=== PATIENT | female | born 1985 | race Caucasian/White ===

== ENCOUNTER 2017-01-14 15:11 | Emergency (ER) | payer SELFPAY ==
[2017-01-14] MEDS ORDERED: NS 1,000 ML IV ONE (15:29)
[2017-01-14 15:30] VITALS: RESP 18; TEMP 98.2
[2017-01-14 16:12] LABS: ALANINE AMINOTRANSFERASE 13 IU/L (9-52); ALKALINE PHOSPHATASE 85 IU/L (38-126); ANION GAP 14 mEq/L (8-16); ASPARTATE AMINOTRANSFERASE 24 IU/L (14-46); BILIRUBIN,TOTAL 0.5 mg/dL (0.1-1.4); CALCIUM 8.8 mg/dL (8.5-10.4); CARBON DIOXIDE 20 mEq/l (22-31); CHLORIDE 107 mEq/L (97-110); CREATININE 0.5 mg/dL (0.6-1.0); GLOMERULAR FILTRATION RATE > 60; GLUCOSE 154 mg/dL (70-100); POTASSIUM 4.1 mEq/L (3.5-5.2); SODIUM 141 mEq/L (134-144); TOTAL PROTEIN 7.5 g/dL (6.3-8.2)
[2017-01-14] MEDS ORDERED: diphenhydrAMINE 25 MG CAP PO ONE (16:19)
[2017-01-14] MEDS ORDERED: ONDANSETRON DISINTEGRATING 4 MG TAB PO ONE (16:19)
[2017-01-14 16:21] LABS: % IMMATURE GRANULYOCYTES 0.2 % (0.0-1.1); ABSOLUTE IMMATURE GRANULOCYTES 0.01 10^3/uL (0.00-0.10); ADD DIFF? NO; ADD MORPH? NO; ADD SCAN? NO; ATYPICAL LYMPHOCYTE FLAG 20 (0-99); FRAGMENT RBC FLAG 0 (0-99); HEMATOCRIT 37.6 % (38.0-47.0); LEFT SHIFT FLG 0 (0-99); LIPEMIA HEMOLYSIS FLAG 80 (0-99); MEAN CELL HEMOGLOBIN 28.1 pg (27.9-34.1); MEAN CELL HEMOGLOBIN CONCENTR. 31.9 g/dL (32.4-36.7); MEAN CELL VOLUME 88.1 fL (81.5-99.8); MEAN PLATELET VOLUME 8.8 fL (8.7-11.7); PLATELET CLUMPS FLAG 0 (0-99); PLATELET COUNT 301 10^3/uL (150-400); RED BLOOD CELL COUNT 4.27 10^6/uL (4.18-5.33); RED CELL DISTRIBUTION WIDTH 14.9 % (11.5-15.2)
[2017-01-14] MEDS ORDERED: ONDANSETRON 4 MG/2 ML VIAL ONE (16:26)
--- NOTE | 2017-01-14 16:26 | EDPHY ---
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 She had associated pancreatitis that resolved after the stone was removed per her report with a lipase down to the 200s prior to discharge from hospital. She states that her medical records have not arrived here yet. She complains of upper belly pain since discharge from the hospital both achy and sharp in nature in the epigastrium with mild radiation to the right lower belly peak intensity 7/10, worsens with p.o. intake though she reports she is unclear diet. She reports that she has vomited today a total of 6 times. She states there is some bright red streaks in some of the emesis but no coffee-ground emesis. ROS: The patient stated that she had a fever this morning. She initially stated 99 then she reported that it was 101. No other constitutional symptoms HEENT: No URI symptoms or other complaints Pulmonary: No shortness of breath or cough cardiovascular: No lightheadedness. No lower extremity swelling GI: No coffee-ground emesis. No dark tarry stools. No diarrhea. : No complaints. Last menstrual. Normal timing no vaginal discharge. Integumentary: Patient has bruising over both arms and multiple injection sites that she states was from medical procedures. Neuro: No numbness tingling or focal weakness. 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 - Physical Exam Exam: Vital signs are normal General Appearance: Alert, no distress. Eyes: Pupils equal and round no pallor or injection. ENT, Mouth: Mucous membranes moist. Respiratory: There are no retractions, lungs are clear to auscultation. Cardiovascular: Regular rate and rhythm. Gastrointestinal: Normoactive, soft, mild epigastric tenderness with no guarding or rebound. No organomegaly. Multiple abdominal scars-surgical are present clean dry intact including midline vertical incision scar. No lower belly tenderness. Back: No CVA tenderness Neurological: GCS 15. Skin: Warm and dry, no rashes. The patient has multiple injection sites question medical verses track reece-left antecubital left forearm and right antecubital with bruising from tourniquets to bilateral biceps. She also has a scarred external jugular on the right Musculoskeletal: Neck is supple nontender. Extremities are symmetrical, full range of motion. Psychiatric: Mood and affect normal DIFFERENTIAL DIAGNOSIS: After history and physical exam differential diagnosis was considered for gastritis, pancreatitis, hepatitis, drug-seeking Constitutional: Initial Vital Signs Temperature (C) 36.8 C 01/14/17 15:26 Heart Rate 96 01/14/17 15:26 Respiratory Rate 18 01/14/17 15:26 Blood Pressure 129/88 H 01/14/17 15:26 O2 Sat (%) 97 01/14/17 15:26 O2 Delivery Mode Room Air Allergies/Adverse Reactions: dicyclomine [From Bentyl] Allergy (Verified 01/14/17 15:26) erythromycin base Allergy (Verified 01/14/17 15:26) haloperidol [From Haldol] Allergy (Verified 01/14/17 15:26) metoclopramide [From Reglan] Allergy (Verified 01/14/17 15:26) prochlorperazine [From Compazine] Allergy (Verified 01/14/17 15:26) promethazine [From Phenergan] Allergy (Verified 01/14/17 15:26) Home Medications: Medication Instructions Recorded Ondansetron Odt [Zofran Odt] 4 - 8 mg PO Q4PRN PRN #4 tab 01/14/17 Protonix 01/14/17 Medical Decision Making ED Course/Re-evaluation: Patient is a difficult IV stick but our tech established an IV in her leg after a few attempts elsewhere. Normal saline IV Zofran Benadryl IV A review of her labs reveals a normal CBC, normal electrolytes and creatinine as well as normal lipase. HCG is negative. It is surprising that the patient has a history of 6 vomiting episodes today with normal labs, creatinine and normal vital signs. She appears well hydrated clinically. Given her track reece verses multiple medical IV accesses am suspicious about potential drug-seeking in this patient. She however she does have a complicated history. Nevertheless, today's workup reveals no evidence of pancreatitis, hepatitis, acute abdomen. At 5:00 p.m. I checked the patient's symptoms and she reports ongoing nausea despite the Zofran and ongoing pain. I explained the good news that she has normal labs today and she did not feel this was good news because she has ongoing symptoms. I expressed a desire to proceed with further workup including rectal exam to rule out Hemoccult positive stool and if negative to give her anti-inflammatories for pain control and to consider imaging to further workup her ongoing symptoms. The patient complained that she did not feel that we were adequately addressing her problem "all you have done is given me a little Zofran and Benadryl and now you want to give me anti-inflammatories", she complained. When asked if she was disappointed that she had not received opiates she claimed that she was not seeking opiates but also stated abruptly that she wanted to leave and did not want any further workup. She understands the risk of missing GI bleed and other potential pathology without rectal exam and imaging. She understands this risk and accepts it but does not want to sign an AMA form. She will proceed home with a Zofran script and encouraged her to continue her antacid use Maalox as needed for when I suspect is gastritis. - Data Points Laboratory Results: Laboratory Results 01/14/17 16:15 01/14/17 15:40 01/14/17 01/14/17 01/14/17 16:15 15:40 15:40 WBC 4.88 10^3/uL 10^3/uL (3.80-9.50) RBC 4.27 10^6/uL 10^6/uL (4.18-5.33) Hgb 12.0 g/dL L g/dL (12.6-16.3) Hct 37.6 % L % (38.0-47.0) MCV 88.1 fL fL (81.5-99.8) MCH 28.1 pg pg (27.9-34.1) MCHC 31.9 g/dL L g/dL (32.4-36.7) RDW 14.9 % % (11.5-15.2) Plt Count 301 10^3/uL 10^3/uL (150-400) MPV 8.8 fL fL (8.7-11.7) Neut % (Auto) 60.6 % % (39.3-74.2) Lymph % (Auto) 31.4 % % (15.0-45.0) Lamb % (Auto) 4.5 % % (4.5-13.0) Eos % (Auto) 2.9 % % (0.6-7.6) Baso % (Auto) 0.4 % % (0.3-1.7) Nucleat RBC Rel Count 0.0 % % (0.0-0.2) Absolute Neuts (auto) 2.96 10^3/uL 10^3/uL (1.70-6.50) Absolute Lymphs (auto) 1.53 10^3/uL 10^3/uL (1.00-3.00) Absolute Monos (auto) 0.22 10^3/uL L 10^3/uL (0.30-0.80) Absolute Eos (auto) 0.14 10^3/uL 10^3/uL (0.03-0.40) Absolute Basos (auto) 0.02 10^3/uL 10^3/uL (0.02-0.10) Absolute Nucleated RBC 0.00 10^3/uL 10^3/uL (0-0.01) Immature Gran % 0.2 % % (0.0-1.1) Immature Gran # 0.01 10^3/uL 10^3/uL (0.00-0.10) Sodium 141 mEq/L mEq/L (134-144) Potassium 4.1 mEq/L mEq/L (3.5-5.2) Chloride 107 mEq/L mEq/L (97-110) Carbon Dioxide 20 mEq/l L mEq/l (22-31) Anion Gap 14 mEq/L mEq/L (8-16) BUN 8 mg/dL mg/dL (7-23) Creatinine 0.5 mg/dL L mg/dL (0.6-1.0) Estimated GFR > 60 Glucose 154 mg/dL H mg/dL (70-100) Calcium 8.8 mg/dL mg/dL (8.5-10.4) Total Bilirubin 0.5 mg/dL mg/dL (0.1-1.4) AST 24 IU/L IU/L (14-46) ALT 13 IU/L IU/L (9-52) Alkaline Phosphatase 85 IU/L IU/L (38-126) Total Protein 7.5 g/dL g/dL (6.3-8.2) Albumin 4.0 g/dL g/dL (3.5-5.0) Lipase 242.0 IU/L IU/L (23-300) Beta HCG, Qual NEGATIVE Medications Given: Discontinued Medications Al Hydroxide/Mg Hydroxide (Maalox Susp) 30 ml PO EDNOW ONE Stop: 01/14/17 16:46 Last Admin: 01/14/17 17:00 Dose: 30 ml Diphenhydramine HCl (Benadryl) 50 mg PO EDNOW ONE Stop: 01/14/17 16:20 Last Admin: 01/14/17 16:38 Dose: Not Given Diphenhydramine HCl (Benadryl Injection) 50 mg IVP EDNOW ONE Stop: 01/14/17 16:36 Last Admin: 01/14/17 16:32 Dose: 50 mg Sodium Chloride (Ns) 1,000 mls @ 0 mls/hr IV ONCE ONE; Wide Open PRN Reason: Protocol Stop: 01/14/17 15:30 Last Admin: 01/14/17 16:20 Dose: 1,000 mls Ondansetron HCl (Zofran Odt) 8 mg PO EDNOW ONE Stop: 01/14/17 16:20 Last Admin: 01/14/17 16:38 Dose: Not Given Ondansetron HCl (Zofran) 4 mg IVP EDNOW ONE Stop: 01/14/17 16:37 Last Admin: 01/14/17 16:30 Dose: 4 mg Departure - Departure Disposition: Home, Routine, Self-Care Clinical Impression: Epigastric pain Condition: Good Instructions: Epigastric Pain (ED) Additional Instructions: Diagnoses: 1. Epigastric pain Your vital signs and labs are all normal today Plan: Continue antacid [place] diet Zofran if needed for nausea vomiting with Benadryl Maalox if needed for epigastric pain. Call your primary care physician to establish your care here. Follow-up with Dr. Mcdonald -GI specialist for any GI specific concerns. Return to the emergency department for any significant worsening despite the treatment plan. Referrals: NONE *PRIMARY CARE P,. [Primary Care Provider] - As per Instructions Chemo Mcdonald MD [Medical Doctor] - As per Instructions Agueda Hallman MD [Medical Doctor] - As per Instructions Prescriptions: Ondansetron Odt [Zofran Odt] 4 - 8 mg PO Q4PRN PRN #4 tab PRN Reason: Vomiting
[2017-01-14] MEDS ORDERED: ONDANSETRON 4 MG/2 ML VIAL IVP ONE (16:36)
[2017-01-14 16:42] VITALS: BP 151/95; PULSE 93; O2SAT 96
[2017-01-14] MEDS ORDERED: MAG HYDROX/AL HYDROX/SIMETH 30 ML UDCUP PO ONE (16:45)
== END 2017-01-14 17:09 | disposition home or self-care (01) ==
LOC: CED 15:11
DX: R10.13 Epigastric pain (principal); E86.9 Volume depletion, unspecified
CPT/HCPCS: 80053-PO; 83690-PO; 84703-PO; 85025-PO; 96374; J1200; J2405